=== PATIENT | male | born 1990 | race Caucasian/White ===

== ENCOUNTER 2018-06-13 05:41 | Emergency (ER) | payer OTHER ==
[~2018-06-13] VITALS: Ht 177.8 cm; Wt 83.9 kg
[2018-06-13] MEDS ORDERED: IV NORMAL SALINE 1000ML BAG 1,000 ML IV ONE (06:00)
--- NOTE | 2018-06-13 06:05 | PHYS DOC ---
Past Medical History Past Medical History: No Pertinent History (ILIA BRASWELL DO) Past Surgical History: No Surgical History (ILIA BRASWELL DO) Additional Information: nonsmoker Alcohol Use: Occasionally Drug Use: None (ILIA BRASWELL DO) Adult General Chief Complaint Chief Complaint: ABDOMINAL PAIN HPI HPI Patient is a 27 YO M that is presenting with 2 hour history of bilateral lower quadrant abdominal pain that is constant, sharp, localized, and he describes it as a 10/10. He reports N/V/D with his last bowel movement last night, his last meal was last night and he was able to keep it down. Patient reports some alcohol use and says that he was at a concert last night and drinking a little bit. He denies any past medical history and surgical history. He denies trauma. He states that he took ibuprofen and Miralax before he came to the ED to no relief. Reports some low back pain. (ILIA BRASWELL DO) Review of Systems Review of Systems Constitutional: Denies fever or chills [] Eyes: Denies change in visual acuity, redness, or eye pain [] HENT: Denies nasal congestion or sore throat [] Respiratory: Denies cough or shortness of breath [] Cardiovascular: Denies chest pain or palpitations [] GI: Reports abdominal pain, nausea, vomiting, and diarrhea [] : Denies dysuria or hematuria [] Musculoskeletal: Denies back pain or joint pain [] Integument: Denies rash or skin lesions [] Neurologic: Denies headache, focal weakness or sensory changes [] Complete systems were reviewed and found to be within normal limits, except as documented in this note. (ILIA BRASWELL DO) Current Medications Current Medications Current Medications Medications (Trade) Dose Ordered Sig/Robert Start Time Stop Time Status Last Admin Dose Admin Famotidine (Pepcid Vial) 20 mg 1X ONCE 06/13/18 06:15 06/13/18 06:16 DC 06/13/18 06:18 20 MG Fentanyl Citrate (Fentanyl 2ml Vial) 50 mcg 1X ONCE 06/13/18 09:00 06/13/18 09:01 DC 06/13/18 09:00 50 MCG Info (CONTRAST GIVEN -- Rx MONITORING) 1 each PRN DAILY PRN 06/13/18 09:00 06/15/18 08:59 Iohexol (Omnipaque 300 Mg/ml) 75 ml 1X ONCE 06/13/18 08:45 06/13/18 08:46 DC 06/13/18 08:45 75 ML Ketorolac Tromethamine (Toradol 15mg Vial) 15 mg 1X ONCE 06/13/18 06:15 06/13/18 06:16 DC 06/13/18 06:17 15 MG Morphine Sulfate (Morphine Sulfate) 4 mg 1X ONCE 06/13/18 08:30 06/13/18 08:31 DC 06/13/18 08:32 4 MG Multi-Ingredient Mouthwash/Gargle (Gi Cocktail) 20 ml 1X ONCE 06/13/18 07:15 06/13/18 07:16 DC 06/13/18 07:12 20 ML Ondansetron HCl (Zofran) 4 mg 1X ONCE 06/13/18 06:15 06/13/18 06:16 DC 06/13/18 06:18 4 MG Sodium Chloride 1,000 ml @ 1,000 mls/hr 1X ONCE 06/13/18 06:00 06/13/18 06:59 DC 06/13/18 06:17 1,000 MLS/HR (HENNA BARBOUR Jr. DO) Allergies Allergies Allergies Coded Allergies Type Severity Reaction Last Updated Verified No Known Drug Allergies 06/13/18 No (HENNA BARBOUR Jr. DO) Physical Exam Physical Exam Constitutional: Well developed, well nourished, no acute distress, non-toxic appearance. [] HENT: Normocephalic, atraumatic, nose normal. [] Eyes: Conjunctiva normal, no discharge. [] Neck: Normal range of motion, no tenderness. [] Cardiovascular: Heart rate regular rhythm, no murmur [] Lungs & Thorax: Bilateral breath sounds clear to auscultation [] Abdomen: Bowel sounds normal, soft, mild tenderness to palpation B/L LQ, non- peritoneal. [] Skin: Warm, dry, no erythema, no rash. [] Extremities: No tenderness, no edema. [] Neurologic: Alert and oriented X 3, no focal deficits noted. [] Psychologic: Affect normal, judgement normal, mood normal. [] (BRASWELL,ILIA Ramos DO) Current Patient Data Vital Signs Vital Signs Date Time Temp Pulse Resp B/P (MAP) Pulse Ox O2 Delivery O2 Flow Rate FiO2 06/13/18 09:00 16 98 Room Air 06/13/18 06:14 68 177/108 (131) 06/13/18 05:41 97.0 97.0 (HENNA BARBOUR Jr. DO) Lab Values Laboratory Tests Test 06/13/18 05:44 06/13/18 05:50 Urine Collection Type Unknown Urine Color Yellow Urine Clarity Cloudy Urine pH 8.0 Urine Specific [place] 1.010 Urine Protein Negative mg/dL (NEG-TRACE) Urine Glucose (UA) Negative mg/dL (NEG) Urine Ketones (Stick) Negative mg/dL (NEG) Urine Blood Negative (NEG) Urine Nitrite Negative (NEG) Urine Bilirubin Negative (NEG) Urine Urobilinogen Dipstick 0.2 mg/dL (0.2 mg/dL) Urine Leukocyte Esterase Small (NEG) Urine RBC 0 /HPF (0-2) Urine WBC 0 /HPF (0-4) Urine Squamous Epithelial Cells Occ /LPF Urine Amorphous Sediment Present /HPF Urine Bacteria 0 /HPF (0-FEW) Sodium Level 139 mmol/L (136-145) Potassium Level 4.0 mmol/L (3.5-5.1) Chloride Level 102 mmol/L (98-107) Carbon Dioxide Level 29 mmol/L (21-32) Anion Gap 8 (6-14) Blood Urea Nitrogen 7 mg/dL (8-26) L Creatinine 1.0 mg/dL (0.7-1.3) Estimated GFR (Cockcroft-Gault) 88.3 BUN/Creatinine Ratio 7 (6-20) Glucose Level 106 mg/dL (70-99) H Calcium Level 9.5 mg/dL (8.5-10.1) Magnesium Level 2.0 mg/dL (1.8-2.4) Total Bilirubin 0.6 mg/dL (0.2-1.0) Aspartate Amino Transferase (AST) 20 U/L (15-37) Alanine Aminotransferase (ALT) 28 U/L (16-63) Alkaline Phosphatase 86 U/L (46-116) Total Protein 8.0 g/dL (6.4-8.2) Albumin 4.1 g/dL (3.4-5.0) Albumin/Globulin Ratio 1.1 (1.0-1.7) Lipase 126 U/L (73-393) White Blood Count 8.0 x10^3/uL (4.0-11.0) Red Blood Count 5.03 x10^6/uL (4.30-5.70) Hemoglobin 16.1 g/dL (13.0-17.5) Hematocrit 46.2 % (39.0-53.0) Mean Corpuscular Volume 92 fL (79-100) Mean Corpuscular Hemoglobin 32 pg (25-35) Mean Corpuscular Hemoglobin Concent 35 g/dL (31-37) Red Cell Distribution Width 13.8 % (11.5-14.5) Platelet Count 135 x10^3/uL (140-400) L Neutrophils (%) (Auto) 67 % (31-73) Lymphocytes (%) (Auto) 23 % (24-48) L Monocytes (%) (Auto) 9 % (0-9) Eosinophils (%) (Auto) 1 % (0-3) Basophils (%) (Auto) 1 % (0-3) Neutrophils # (Auto) 5.4 x10^3uL (1.8-7.7) Lymphocytes # (Auto) 1.9 x10^3/uL (1.0-4.8) Monocytes # (Auto) 0.7 x10^3/uL (0.0-1.1) Eosinophils # (Auto) 0.1 x10^3/uL (0.0-0.7) Basophils # (Auto) 0.1 x10^3/uL (0.0-0.2) Laboratory Tests 06/13/18 05:50 Laboratory Tests 06/13/18 05:44 (HENNA BARBOUR Jr. DO) EKG EKG [] (ILIA BRASWELL DO) Radiology/Procedures Radiology/Procedures [] (ILIA BRASWELL DO) Course & Med Decision Making Course & Med Decision Making Pertinent Labs and Imaging studies reviewed. (See chart for details) Patient is a 27 YO M that is presenting with 2 hours of nausea, vomiting, diarrhea, and bilateral lower quadrant abdominal pain. Reports some low back pain. Labs were obtained and posted to chart. IV fluids given. Pain addressed. Sign out given to Dr. Barbour for further evaluation and final disposition. Discussed current findings and plan with patient, who acknowledge understanding and agreement. (ILIA BRASWELL DO) Course & Med Decision Making Patient's care was received from Dr. Braswell at 6:00 AM. At the time of his departure patient's blood work was pending. Blood work is returned unremarkable. Patient did report an increase in pain again and was given a dose of GI cocktail. Patient states that the GI cocktail had treated the burning sensation in his abdomen but he still has some sharp pains throughout his abdomen. An AP and upright of the abdomen were obtained and demonstrate nonspecific bowel gas pattern. I reviewed these findings with the patient and he is concerned, stating that he is afraid that the pain will come back again tonight because his were present for the last [address] imaging with patient and he would like to move forward with CT. (HENNA BARBOUR Jr. DO) Dragon Disclaimer Dragon Disclaimer This electronic medical record was generated, in whole or in part, using a voice recognition dictation system. (ILIA BRASWELL DO) Departure Departure Impression: Primary Impression: Abdominal pain Additional Impressions: Gastritis Mesenteric adenitis Disposition: HOME, SELF-CARE Condition: STABLE Patient Instructions: Gastritis, Adult, Mesenteric Adenitis Scripts Ranitidine Hcl (ZANTAC) 150 Mg Tablet 150 MG PO BID for 14 Days, #28 TAB Prov: HENNA BARBOUR Jr. DO 06/13/18 Dicyclomine Hcl (DICYCLOMINE HCL) 20 Mg Tablet 1 TAB PO TID PRN for abdominal pain, #15 TAB Prov: HENNA BARBOUR Jr. DO 06/13/18 Hydrocodone/Apap 5-325 (NORCO 5-325 TABLET) 1 Each Tablet 1 EACH PO PRN Q6HRS PRN for PAIN for 3 Days, #12 as needed for pain Prov: HENNA BARBOUR Jr. DO 06/13/18 Problem Qualifiers Primary Impression: Abdominal pain Abdominal location: lower abdomen, unspecified Qualified Codes: R10.30 - Lower abdominal pain, unspecified Additional Impressions: Gastritis Gastritis type: unspecified gastritis Chronicity: unspecified Gastritis bleeding: without bleeding Qualified Codes: K29.70 - Gastritis, unspecified, without bleeding IILA BRASWELL DO Jun 13, 2018 06:05 HENNA BARBOUR Jr., DO Jun 13, 2018 08:06
[2018-06-13 06:13] LABS: BASO # 0.1 x10^3/uL (0.0-0.2); BASO % 1 % (0-3); EOS # 0.1 x10^3/uL (0.0-0.7); EOS % 1 % (0-3); HEMATOCRIT 46.2 % (39.0-53.0); HEMOGLOBIN 16.1 g/dL (13.0-17.5); LYMPH # 1.9 x10^3/uL (1.0-4.8); LYMPH % 23 % (24-48); MEAN CORPUSCULAR HEMOGLOBIN 32 pg (25-35); MEAN CORPUSCULAR HGB CONC 35 g/dL (31-37); MEAN CORPUSCULAR VOLUME 92 fL (79-100); MONO # 0.7 x10^3/uL (0.0-1.1); MONO % 9 % (0-9); NEUT # 5.4 x10^3uL (1.8-7.7); NEUT % 67 % (31-73); PLATELET COUNT 135 x10^3/uL (140-400); RED BLOOD COUNT 5.03 x10^6/uL (4.30-5.70); RED CELL DISTRIBUTION WIDTH 13.8 % (11.5-14.5)
[2018-06-13 06:15] LABS: BILIRUBIN,URINE NEGATIVE (NEG); CLARITY,URINE CLOUDY; COLOR,URINE YELLOW; NITRITE,URINE NEGATIVE (NEG); PROTEIN,URINE NEGATIVE (NEG-TRACE); UROBILINOGEN,URINE 0.2 mg/dL (0.2 mg/dL)
[2018-06-13] MEDS ORDERED: FAMOTIDINE 20 MG/2 ML VIAL IVP ONE (06:15)
[2018-06-13] MEDS ORDERED: KETOROLAC 15 MG/ML VIAL. IV ONE (06:15)
[2018-06-13] MEDS ORDERED: ONDANSETRON PF 4 MG/2 ML VIAL. IV ONE (06:15)
[2018-06-13 06:19] LABS: CALCIUM 9.5 mg/dL (8.5-10.1); GFR 88.3
[2018-06-13 06:27] LABS: ALBUMIN 4.1 g/dL (3.4-5.0); ALBUMIN/GLOBULIN RATIO 1.1 (1.0-1.7); TOTAL BILIRUBIN 0.6 mg/dL (0.2-1.0)
[2018-06-13 06:29] LABS: AMORPHOUS SEDIMENT,UR PRESENT /HPF; BACTERIA,URINE 0 /HPF (0-FEW); RBC,URINE 0 /HPF (0-2); SQUAMOUS EPITHELIAL CELL,UR OCC /LPF; WBC,URINE 0 /HPF (0-4)
[2018-06-13] MEDS ORDERED: fentaNYL PF VIAL 100 MCG/2 ML VIAL IV ONE ×2 (07:00→09:00)
[2018-06-13] MEDS ORDERED: LIDO:MAALOX 1:1 20 ML SINGLE DOSE. SWSW ONE (07:15)
--- NOTE | 2018-06-13 08:03 | RAD ---
Supine and upright views of the abdomen Clinical indications: Nausea and vomiting and diarrhea since this morning. FINDINGS: No obstructive bowel pattern is seen. No air-fluid levels are seen. No free peritoneal air is seen. IMPRESSION: No acute radiographic abnormality is evident. Electronically signed by: Po Courtney MD (06/13/2018 7:59 AM) [facility]
[2018-06-13] MEDS ORDERED: MORPHINE SULFATE 4 MG/ML VIAL. IV ONE (08:30)
[2018-06-13] MEDS ORDERED: IOHEXOL 300 MG/ML 100ML VIAL. IV ONE (08:45)
[2018-06-13] MEDS ORDERED: CONTRAST GIVEN. MC PRN (09:00)
[2018-06-13 09:25] VITALS: BP 156/88
--- NOTE | 2018-06-13 09:25 | RAD ---
PQRS Compliance statement: One or more of the following individualized dose reduction techniques were utilized for this examination: 1. Automated exposure control. 2. Adjustment of the mA and/or kV according to patient size. 3. Use of iterative reconstruction technique. Indication:ABD PAIN TODAY
NO PREVIOUS
IV OMNI 300 75 MLS TECHNIQUE: CT abdomen and pelvis with IV contrast with multiplanar reformats. COMPARISON: None FINDINGS: Heart is normal in size. No pericardial or pleural effusion. Clear lung bases. 1.8 x 1.5 cm subcapsular focus of low-attenuation is seen in segment 6 of the liver. Scattered other too small to characterize low attenuating foci seen in the liver for example subcapsular segment 2 (series 2 image 23). Spleen is top normal in size without focal lesion. Gallbladder, pancreas, adrenals and kidneys are within normal limits. No enlarged retroperitoneal or pelvic adenopathy. No free pelvic fluid or ascites. No bowel obstruction. Normal appendix. Multiple right lower quadrant mesenteric lymph nodes are seen, the largest measuring 1.1 x 0.8 cm. Urinary bladder is within normal limits. The prostate and seminal vesicles show no large mass. No pneumoperitoneum. No suspicious bony lesion. IMPRESSION: 1. No bowel obstruction. Normal appendix. 2. No nephrolithiasis or hydronephrosis. 3. Scattered liver lesions, nonspecific and may represent cystic biliary hamartomas or hemangiomas. Nonemergent MRI of the abdomen with IV contrast can be obtained for definite evaluation. 4. Prominent right lower quadrant lymph nodes, nonspecific and may represent adenitis. Correlate with right lower quadrant pain. Electronically signed by: John Sanches DO (06/13/2018 9:20 AM) [facility]
[2018-06-13] MEDS ORDERED: RANI150T21 PO (09:42)
[2018-06-13] MEDS ORDERED: DICY20TA3 PO (09:42)
[2018-06-13] MEDS ORDERED: HYDR-3164 PO (09:42)
== END 2018-06-13 09:58 | disposition home or self-care (01) ==
LOC: ER 05:41
DX: K29.60 Other gastritis without bleeding (principal); I88.0 Nonspecific mesenteric lymphadenitis; M54.5 Low back pain
CPT/HCPCS: 36415; 74021; 74177; 80053; 81001; 83690; 83735; 85025; 87086; 96361; 96374; 96375; 96376; 99284; J1885; J2270; J2405; J3010; J3490; J7030; Q9967